=== PATIENT | female | born 1990 | race Hispanic/Latino ===

== ENCOUNTER 2017-04-05 06:19 | Emergency (ER) | payer MEDICAID ==
[2017-04-05] MEDS ORDERED: traMADol HCl 50 MG TAB ONE (06:56)
== END 2017-04-05 07:00 | disposition home or self-care (01) ==
LOC: MADERS 06:19
DX: G47.62 Sleep related leg cramps (principal); Z79.899 Other long term (current) drug therapy
CPT/HCPCS: 36416; 99283